=== PATIENT | female | born 1995 | race Caucasian/White ===

== ENCOUNTER 2016-09-16 19:17 | Emergency (ER) | payer OTHER ==
[~2016-09-16] VITALS: Ht 170.2 cm; Wt 58.9 kg
[2016-09-16 19:25] VITALS: Ht 170.2 cm; Wt 58.9 kg
--- NOTE | 2016-09-16 19:56 | EMERGENCY ROOM VISIT NOTE ---
History Report prepared by Chandan: Ewdige Mclaughlin Under the Supervision of: Dr. Jewel Higgins M.D. First contact with patient: 19:45 Chief Complaint: FEVER Stated Complaint: FEVER- REFERRED BY [facility] History of Present Illness The patient is a 21 year old female who presents to the Emergency Room with complaints of a persistent fever for the past 2 days. She went to a local [facility] this evening and her temperature was 105.8. She was given Tylenol and referred to the ED for further evaluation and management. The patient also complains of a sore throat and reports she produced a negative strep test at [facility]. She denies any headache or neck pain or stiffness. She has been able to eat and drink normally and denies any abdominal pain or urinary symptoms. She admits one episode of diarrhea yesterday and again this morning. She has experienced a mild cough. She denies experiencing any high fevers since she was a child. The patient denies any recent sick contacts. She denies any chronic medical problems. Source of History: patient Onset: 2 days [employer] Position: other (global) Timing: other (persistent) Modifying Factors (Relieving): tylenol Associated Symptoms: + cough, + diarrhea, + sorethroat, No abdominal pain, No headache, No neck pain, No urinary symptoms Review of Systems All systems have been listed, reviewed, and are negative other than those previously mentioned. Please see Additional Medical History Sheet. Past Medical & Surgical Medical Problems: (1) No significant past medical history Surgical Problems: (1) History of sinus surgery Social History Smoking Status: Current Some Day Smoker Alcohol Use: occasionally Drug Use: none Marital Status: single Housing Status: lives with roommate Occupation Status: [employer] student Current/Historical Medications Scheduled Azithromycin (Zithromax Z-Gerson), 0 PO UD Physical Exam Vital Signs Date Time Temp Pulse Resp B/P Pulse Ox O2 Delivery O2 Flow Rate FiO2 09/16/16 20:59 100 18 101/69 98 09/16/16 19:25 36.8 108 18 122/80 97 Room Air Physical Exam GENERAL: Patient awake, alert, oriented x 3. Patient follows commands. Patient does not appear toxic. Patient is adequately hydrated and well- nourished. SKIN: No erythema, pallor, cyanosis or rash HEENT: Normal head, pupils equal, reactive to light and accommodation. Ears normal. Oral cavity and posterior pharynx appear normal. Neck: Supple, nontender. Without adenopathy, no neck vein distention. No meningeal signs, negative Kernig's and Brudzinski signs. LUNGS: Clear to auscultation. No wheezes, no rales, no rhonchi. HEART: No murmurs. No gallops. No rubs ABDOMEN: No masses, no rebound, no hepatomegaly or splenomegaly. EXTREMITIES: No signs of trauma. No pedal or pretibial edema. No calf or thigh tenderness. NEUROLOGIC: Cranial nerves II-XII within normal limits. No gross motor sensory function deficits. Medical Decision & Procedures ER Provider Diagnostic Interpretation: X ray results are stated below per my interpretation and the radiologist's interpretation. CHEST 2 VIEWS ROUTINE IMPRESSION: Focal infiltrate right lower lobe Electronically signed by: Chris Daly M.D. 09/16/2016 8:36 PM Laboratory Results 09/16/16 20:13 Red Blood Count 4.01, Mean Corpuscular Volume 90.0, Mean Corpuscular Hemoglobin 31.7, Mean Corpuscular Hemoglobin Concent 35.2, Mean Platelet Volume 8.6, Neutrophils (%) (Auto) 78.2, Lymphocytes (%) (Auto) 16.4, Monocytes (%) (Auto) 4.9, Eosinophils (%) (Auto) 0.0, Basophils (%) (Auto) 0.3, Neutrophils # (Auto) 4.90, Lymphocytes # (Auto) 1.03, Monocytes # (Auto) 0.31, Eosinophils # (Auto) 0.00, Basophils # (Auto) 0.02 09/16/16 20:13 Test 09/16/16 20:10 09/16/16 20:13 Urine Color YELLOW Urine Appearance CLEAR (CLEAR) Urine pH 6.0 (4.5-7.5) Urine Specific [place] 1.012 (1.000-1.030) Urine Protein NEG (NEG) Urine Glucose (UA) NEG (NEG) Urine Ketones 1+ (NEG) Urine Occult Blood NEG (NEG) Urine Nitrite NEG (NEG) Urine Bilirubin NEG (NEG) Urine Urobilinogen NEG (NEG) Urine Leukocyte Esterase MODERATE (NEG) Urine WBC (Auto) 10-30 /hpf (0-5) Urine RBC (Auto) 0-4 /hpf (0-4) Urine Hyaline Casts (Auto) 1-5 /lpf (0-5) Urine Epithelial Cells (Auto) >30 /lpf (0-5) Urine Bacteria (Auto) 1+ (NEG) Urine Test NEG (NEG) White Blood Count 6.27 K/uL (4.8-10.8) Red Blood Count 4.01 M/uL (4.2-5.4) Hemoglobin 12.7 g/dL (12.0-16.0) Hematocrit 36.1 % (37-47) Mean Corpuscular Volume 90.0 fL (80-100) Mean Corpuscular Hemoglobin 31.7 pg (25-34) Mean Corpuscular Hemoglobin Concent 35.2 g/dl (32-36) Platelet Count 256 K/uL (130-400) Mean Platelet Volume 8.6 fL (7.4-10.4) Neutrophils (%) (Auto) 78.2 % Lymphocytes (%) (Auto) 16.4 % Monocytes (%) (Auto) 4.9 % Eosinophils (%) (Auto) 0.0 % Basophils (%) (Auto) 0.3 % Neutrophils # (Auto) 4.90 K/uL (1.4-6.5) Lymphocytes # (Auto) 1.03 K/uL (1.2-3.4) Monocytes # (Auto) 0.31 K/uL (0.11-0.59) Eosinophils # (Auto) 0.00 K/uL (0-0.5) Basophils # (Auto) 0.02 K/uL (0-0.2) RDW Standard Deviation 40.5 fL (36.4-46.3) RDW Coefficient of Variation 12.2 % (11.5-14.5) Immature Granulocyte % (Auto) 0.2 % Immature Granulocyte # (Auto) 0.01 K/uL (0.00-0.02) Red Blood Cell Morphology Unremarkable Anion Gap 9.0 mmol/L (3-11) Est Creatinine Clear Calc Drug Dose 106.6 ml/min Estimated GFR () 127.0 Estimated GFR (Non- 109.6 BUN/Creatinine Ratio 9.2 (10-20) Calcium Level 8.0 mg/dl (8.5-10.1) Laboratory results as stated above per my review. Medications Administered Medications (Trade) Dose Ordered Sig/Rossana Route Start Time Stop Time Status Last Admin Dose Admin Ceftriaxone Sodium (Rocephin Inj) 1 gm NOW STAT IV 09/16/16 21:28 09/16/16 21:34 DC 09/16/16 21:41 1 GM ED Course 1950: Past medical records reviewed. The patient was evaluated in room C3. A complete history and physical examination was performed. 2123: I reevaluated the patient. She is feeling better. I discussed her results and discharge instructions and she verbalized complete understanding and agreement. 2127: Rocephin 1 gm IV. Medical Decision Nurses notes reviewed. Medical history sheet reviewed. Differential diagnosis includes but is not limited to: URI, otitis media, pharyngitis, encephalitis, pneumonia, viral infection. The patient was sent here from [facility] where she apparently had a fever of 105.8. The patient was given Tylenol they are now feels significantly better. Multiple labs, urinalysis and imaging were obtained. Please see above. The patient has a right lower lobe pneumonia. She also has signs consistent with a urinary tract infection although she has no dysuria, frequency or urgency. The patient was given 1 g of IV Rocephin and prescription for Zithromax. The patient had no meningeal signs and I do not believe she requires a spinal tap. Impression Primary Impression: Right lower lobe pneumonia Additional Impression: UTI (urinary tract infection) Scribe Attestation The scribe's documentation has been prepared under my direction and personally reviewed by me in its entirety. I confirm that the note above accurately reflects all work, treatment, procedures, and medical decision making performed by me. Departure Information Dispostion Home / Self-Care Prescriptions Azithromycin (ZITHROMAX Z-GERSON) 250 Mg Tab 0 PO UD, #1 PKT Prov: Jewel Higgins M.D. 09/16/16 Referrals No Doctor, Assigned (PCP) Patient Instructions Azithromycin Oral suspension extended release, [facility] Additional Instructions 2 Zithromax pills tomorrow morning followed by one pill daily for the next 4 days. Drink extra fluids. 650 mg Tylenol every 4 hours as needed for aches, pain or fever. You should be rechecked by family physician in 10-14 days. Return here sooner if symptoms worsen. Problem Qualifiers
[2016-09-16 20:24] LABS: HEMATOCRIT 36.1 % (37-47); MEAN CORPUSCULAR HEMOGLOBIN 31.7 pg (25-34); MEAN CORPUSCULAR HGB CONC 35.2 g/dl (32-36); MEAN PLATELET VOLUME 8.6 fL (7.4-10.4); PLATELET COUNT 256 K/uL (130-400); RED BLOOD COUNT 4.01 M/uL (4.2-5.4); WHITE BLOOD COUNT 6.27 K/uL (4.8-10.8)
[2016-09-16 20:34] LABS: URINE APPEARANCE CLEAR (CLEAR); URINE BILIRUBIN NEG (NEG); URINE COLOR YELLOW; URINE EPITHELIAL CELL AUTO >30 /lpf (0-5); URINE NITRITE NEG (NEG); URINE SPECIFIC GRAVITY 1.012 (1.000-1.030); UROBILINOGEN NEG (NEG); ZZUR CULT IF INDIC CLEAN CATCH YES
[2016-09-16 20:35] LABS: MANUAL MICROSCOPIC REQUIRED? NO; REVIEW REQ? NO
--- NOTE | 2016-09-16 20:37 | DIAGNOSTIC IMAGING REPORT ---
CHEST 2 VIEWS ROUTINE CLINICAL HISTORY: fever dyspnea COMPARISON STUDY: No previous studies for comparison. FINDINGS: Focal infiltrate right lower lobe laterally. Trace pleural fluid right base. Lungs otherwise appear clear. IMPRESSION: Focal infiltrate right lower lobe Electronically signed by: Chris Daly M.D. 09/16/2016 8:36 PM Dictated Date/Time: 09/16/2016 8:35 PM
[2016-09-16 20:41] LABS: BUN/CREATININE RATIO 9.2 (10-20); CREATININE 0.77 mg/dl (0.60-1.20); POTASSIUM 3.3 mmol/L (3.5-5.1)
[2016-09-16 20:45] LABS: BASO % 0.3 %; BASO ABS # 0.02 K/uL (0-0.2); COMPLETE YES; IG% 0.2 %; LYMPH % 16.4 %; LYMPH ABS # 1.03 K/uL (1.2-3.4); MONO % 4.9 %; NEUT % 78.2 %
[2016-09-16] MEDS ORDERED: CEFTRIAXONE SOD INJ 1 GM ADDVIAL IV STA (21:28)
[2016-09-16] MEDS ORDERED: AZITTAB PO (21:35)
[2016-09-16 23:04] VITALS: BP 121/72; PULSE 99; O2SAT 100
[2016-09-16 23:06] VITALS: TEMP 37
== END 2016-09-16 23:06 | disposition home or self-care (01) ==
LOC: C.EDB 19:20 → C.EDC 23:06
DX: J18.9 Pneumonia, unspecified organism (principal); N39.0 Urinary tract infection, site not specified; F17.200 Nicotine dependence, unspecified, uncomplicated; Z98.890 Other specified postprocedural states